=== PATIENT | female | born 1955 | race Caucasian/White ===

== ENCOUNTER 2017-02-20 10:06 | Day surgery (SDC) | payer OTHER ==
--- NOTE | 2017-02-19 13:50 | PREOPHP ---
DATE OF ADMISSION: 02/20/2017 HISTORY OF PRESENT ILLNESS: This 61-year-old patient is admitted for elective cataract surgery of t he left eye. The patient has noted decreased vision in both eyes for the past 6 months and feels th at she cannot drive safely at night and has difficulty watching television as well as seeing halos a round headlights. Patient denies prior history of eye disease or injury. Systemic history is posit ganesh for arthritis and a history of uterine cancer in 2005. CURRENT MEDICATIONS INCLUDE: Biotin, Phentermine, Mobic, and omeprazole. ALLERGIES: PATIENT IS ALLERGIC TO ERYTHROMYCIN. PHYSICAL EXAMINATION: Visual acuity with best correction is 20/30 in the right eye and 20/30 -2 in the left eye. Slit lamp examination reveals nuclear sclerotic cataracts present in both eyes. Appl anation tonometry is 14 mmHg in each eye. Examination of the retina is within normal limits. DIAGNOSIS: Cataract, left eye. PLAN: Cataract extraction with lens implant, left eye. The risks and alternatives to the surgery h ave been discussed with the patient as well as follow for improvement of visual acuity leading to a greater ability to drive safely as well as view other things with greater ease. Patient understands this and agrees to proceed with surgery. Dictated By: ANNE CARPENTER MD BM/ANGELO Conf#: [id number] DID#: [id number] CC: ANNE CARPENTER MD;*EndCC*
[~2017-02-20] VITALS: Ht 152.4 cm; Wt 68.3 kg
[2017-02-20] VITALS (8 sets, daily range): BP systolic 121–153; BP diastolic 70–89; PULSE 54–72; RESP 15–19; Ht 152.4 cm; Wt 68.3 kg
[~2017-02-20 10:06] MED LIST: BROMFENAC SODIUM 1.7 ML OPH DROP OPER SCH; CYCLOPENTOLATE/PHENYLEPH 2 ML OPH OPER SCH; MOXIFLOXACIN 0.5% 3 ML OPH OPER SCH; SOD CHLORIDE 0.9% 1,000 ML IV SCH; TROPICAMIDE 1% 3 ML OPH OPER SCH
[2017-02-20] MEDS ORDERED: CARBACHOL 0.01% 1.5 ML OPH INJ IO ONE (12:35)
[2017-02-20] MEDS ORDERED: DEXAMETHASONE 4 MG/ML 1 ML INJ INJ ONE (12:35)
[2017-02-20] MEDS ORDERED: CEFAZOLIN 1 GM INJ INJ ONE (12:35)
[2017-02-20] MEDS ORDERED: CARBACHOL 0.01% 1.5 ML OPH INJ ONE (12:36)
[2017-02-20] MEDS ORDERED: LIDOCAINE 4% (MPF) 5 ML INJ ONE ×2 (12:38→12:39)
[2017-02-20] MEDS ORDERED: GENTAMICIN 80 MG INJ ONE (12:38)
[2017-02-20] MEDS ORDERED: EPINEPHrine 1 MG INJ ONE (12:38)
[2017-02-20] MEDS ORDERED: DEXAMETHASONE 4 MG/ML 1 ML INJ ONE (12:38)
[2017-02-20] MEDS ORDERED: PROPOFOL 20 ML ONE (12:42)
--- NOTE | 2017-02-20 13:25 | SIPON ---
Date/Time of Note Date/Time of Note DATE: 02/20/17 TIME: 13:24 Operative Report Preoperative Diagnosis cataract os Postoperative Diagnosis same Operation/Procedure Performed cataract implant surgery Surgeon see signature line chemistry research assistant none Anesthesia: MAC Estimated blood loss: none Transfusion Required none Specimen none Grafts/Implants posterior chamber lens implant Complications none ANNE CARPENTER MD Feb 20, 2017 13:25
[2017-02-20] MEDS ORDERED: METOCLOPRAMIDE 10 MG INJ IV PRN (13:30)
[2017-02-20] MEDS ORDERED: DIPHENHYDRAMINE 50 MG INJ IV PRN (13:30)
[2017-02-20] MEDS ORDERED: OXYCODONE/ACETAMINOPHEN (5/325) TAB PO PRN ×2 (13:30)
[2017-02-20] MEDS ORDERED: MIDAZOLAM 1 MG/ML 2 ML INJ IV PRN (13:30)
[2017-02-20] MEDS ORDERED: hydrALAzine 20 MG INJ IV PRN (13:30)
[2017-02-20] MEDS ORDERED: FENTAnyl 50 MCG/ML VIAL IV PRN ×3 (13:30)
[2017-02-20] MEDS ORDERED: MEPERIDINE 25 MG INJ IV PRN (13:30)
[2017-02-20] MEDS ORDERED: LABETALOL HCL 20MG INJ IV PRN (13:30)
[2017-02-20] MEDS ORDERED: ONDANSETRON 4 MG INJ IV PRN (13:30)
[2017-02-20] MEDS ORDERED: EPHEDrine SULFATE 50 MG/5 ML SYG IV PRN (13:30)
--- NOTE | 2017-02-20 13:58 | OPR ---
DATE OF OPERATION: 02/20/2017 PREOPERATIVE DIAGNOSIS: Cataract, left eye. POSTOPERATIVE DIAGNOSIS: Cataract, left eye. OPERATION PERFORMED: Cataract extraction with lens implant, left eye. SURGEON: Anne Clancy MD ANESTHESIA: Local standby. ANESTHESIOLOGIST: Dr. Baca PROCEDURE: The patient was brought to the operating room and placed on the table with an IV in plac e and the patient attached to an kaiawhina kohanga reo. Oxygen was given via face mask. After some intravenous sedation was administered, local anesthesia was given using Xylocaine 2% with epinephrine, mixed with Marcaine 0.5%. This was given in a lid block and retrobulbar injection. The patient was then prepped and draped in the usual sterile manner. A wire lid speculum was inserted between the lids of the left eye. A Superblade was used to enter th e anterior chamber at the corneoscleral limbus at the 10:30 o'clock position. A separate incision wa s made using a 3.0-mm keratome which entered the corneoscleral junction at the 12 o'clock position. Through this 3-mm opening, an irrigating cystotome was introduced into the anterior chamber. The kaitlyn mber was filled with Viscoat and an anterior capsulotomy was performed. Balanced salt solution was t hen used for hydrodissection of the lens. A phacoemulsification handpiece was then brought into the field and introduced into the anterior chamber. The lens nucleus was emulsified using a deep groove and cracking the nucleus into quadrants. Following this, each quadrant was aspirated and emulsified at the pupillary margin. After this was completed, the irrigation/aspiration handpiece was brought to the field, introduced i nto the posterior chamber, and the lens cortical material was removed. When this was completed, rex tional Provisc injected into the anterior and posterior chambers. The 3-mm opening had its internal lips enlarged, and then the posterior chamber intraocular lens caity suring 20.0 diopters ([employer] model LI61AO) was then injected into the posterior chamber using the lens injector system. After the leading haptic was introduced into the capsular b ag and the lens optic was present in the center of the eye, the injector was removed and the trailin g haptic was grasped with non-toothed forceps and introduced into the capsular fold superiorly. A Si nskey hook was then used to rotate the intraocular lens so that the lips were oriented in the horizo ntal meridian. One 10-0 nylon suture was placed across the wound. Prior to tying, the irrigation/aspiration handpiece was reintroduced into the anterior chamber to re move the Provisc. Miochol was instilled to constrict the pupil, and then the 10-0 nylon suture was t ied. The ends were cut short and then the knot was buried. Then, 0.5 mL of dexamethasone and 0.5 mL of Ancef were injected into the sub-Tenon space in the infe rior fornix. Ciloxan drops were then placed on the surface of the eye. The speculum was removed and a patch was applied. The patient then left the operating room in satisfactory condition. Dictated By: ANNE FREEDMAN/ANGELO Conf#: [id number] DID#: [id number]
== END 2017-02-20 14:50 | disposition home or self-care (01) ==
LOC: SDS 10:06
PROVIDERS: ATTEND Ophthalmology
DX: H25.12 Age-related nuclear cataract, left eye (principal); K21.9 Gastro-esophageal reflux disease without esophagitis; J45.909 Unspecified asthma, uncomplicated
CPT/HCPCS: 66984; J0171; J0690; J1100; J1580; J2175; V2632; Z7512; Z7610

== ENCOUNTER → 2017-04-10 | Outpatient (CLI) | END | disposition home or self-care (01) ==